=== PATIENT | female | born 2000 | race Hispanic/Latino ===

== ENCOUNTER 2022-10-14 22:01 | Emergency (ER) | payer OTHER ==
--- OUTSIDE RECORDS SUMMARY | 2022-10-14 22:04 | XMS REPORT | Continuity of Care Document ---
:2000 Author Organization [facility] t Address [address] [place] [id number] Care Team Providers Name Role Phone Unavailable Unavailable Unavailable Problems This patient has no known problems. Allergies, Adverse Reactions, Alerts This patient has no known allergies or adverse reactions. Medications This patient has no known medications. Procedures This patient has no known procedures. Encounters Start End Encounter Admission Attending Care Care Encounter Source Date/Time Date/Time Type Type Clinicians Facility Department ID 2022-06-14 2022-06-14 Outpatient SWATHI ECHEVARRIA [id number] Ker[place] 09:12:31 09:12:31 [id number] Tram Portillo Results This patient has no known results.
[2022-10-14 23:09] LABS: Specific Gravity 1.013 (1.005-1.030); Specific Gravity 1.023 (1.005-1.030); Urine Bilirubin NEGATIVE (Negative); Urine Blood Negative (Negative); Urine Clarity Extremely Turbid (Clear); Urine Color Light-Yellow (Yellow); Urine Glucose NEGATIVE (Negative); Urine Mucus Slight /HPF (None Seen); Urine Protein NEGATIVE (Negative); Urine RBC <5 /HPF (None Seen); Urine Urobilinogen Normal (Normal); Urine pH 5.5 (5.0-7.0)
[2022-10-14 23:12] LABS: Barbiturates NEGATIVE (NEGATIVE); Benzodiazepines NEGATIVE (NEGATIVE); Cocaine NEGATIVE (NEGATIVE); METHAMPHETAM NEGATIVE (NEGATIVE); Methadone NEGATIVE (NEGATIVE); Opiates NEGATIVE (NEGATIVE); Phencyclidine NEGATIVE (NEGATIVE); THC Cannibis NEGATIVE (NEGATIVE)
[2022-10-14 23:23] LABS: Urine Bacteria Loaded /HPF (<20)
[2022-10-15] MEDS ORDERED: DICYCLOMINE HCL 10 MG CAP ONE (00:34)
--- NOTE | 2022-10-15 00:44 | EDPHYS ---
Physician Documentation [facility] Name: Thao Vega Age: 22 yrs Sex: Female : 2000 Arrival Date: 10/14/2022 Time: 22:01 Bed 14 Private MD: ED Physician Sudhir Nichols HPI: 10/14 22:34 This 22 yrs old Female presents to ER via Ambulatory with complaints of snw Abdominal Cramping. 22:34 The patient presents with. snw 22:34 Onset: The symptoms/episode began/occurred 3 week(s) ago. Associated signs and snw symptoms: Pertinent positives: cramping. Severity of symptoms: At their worst the symptoms were mild, moderate. It is unknown whether or not the patient has had similar symptoms in the past. It is unknown whether or not the patient has recently seen a physician. 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 - Social history:: Smoking status: Patient denies any tobacco usage or history of. ROS: 22:33 Constitutional: Negative for fever, chills, and weight loss, Eyes: Negative for injury, snw pain, redness, and discharge, ENT: Negative for injury, pain, and discharge, Neck: Negative for injury, pain, and swelling, Cardiovascular: Negative for chest pain, palpitations, and edema, Respiratory: Negative for shortness of breath, cough, wheezing, and pleuritic chest pain, Back: Negative for injury and pain, : Negative for injury, bleeding, discharge, and swelling, MS/Extremity: Negative for injury and deformity, Skin: Negative for injury, rash, and discoloration, Neuro: Negative for headache, weakness, numbness, tingling, and seizure, Psych: Negative for depression, anxiety, suicide ideation, homicidal ideation, and hallucinations. 22:33 Abdomen/GI: Positive for abdominal cramps, LMP three weeks ago. Exam: 22:32 Constitutional: This is a well developed, well nourished patient who is awake, alert, snw and in no acute distress. Head/Face: Normocephalic, atraumatic. Eyes: Pupils equal round and reactive to light, extra-ocular motions intact. Lids and lashes normal. Conjunctiva and sclera are non-icteric and not injected. Cornea within normal limits. Periorbital areas with no swelling, redness, or edema. ENT: Nares patent. No nasal discharge, no septal abnormalities noted. Tympanic membranes are normal and external auditory canals are clear. Oropharynx with no redness, swelling, or masses, exudates, or evidence of obstruction, uvula midline. Mucous membranes moist. Neck: Trachea midline, no thyromegaly or masses palpated, and no cervical lymphadenopathy. Supple, full range of motion without nuchal rigidity, or vertebral point tenderness. No Meningismus. Chest/axilla: Normal chest wall appearance and motion. Nontender with no deformity. No lesions are appreciated. Cardiovascular: Regular rate and rhythm with a normal S1 and S2. No gallops, murmurs, or rubs. Normal PMI, no JVD. No pulse deficits. Respiratory: Lungs have equal breath sounds bilaterally, clear to auscultation and percussion. No rales, rhonchi or wheezes noted. No increased work of breathing, no retractions or nasal flaring. Back: No spinal tenderness. No costovertebral tenderness. Full range of motion. Skin: Warm, dry with normal turgor. Normal color with no rashes, no lesions, and no evidence of cellulitis. MS/ Extremity: Pulses equal, no cyanosis. Neurovascular intact. Full, normal range of motion. Neuro: Awake and alert, GCS 15, oriented to person, place, time, and situation. Cranial nerves II-XII grossly intact. Motor strength 5/5 in all extremities. Sensory grossly intact. Cerebellar exam normal. Normal gait. Psych: Awake, alert, with orientation to person, place and time. Behavior, mood, and affect are within normal limits. 22:32 Abdomen/GI: Inspection: abdomen appears normal, obese Bowel sounds: normal, Palpation: mild abdominal tenderness, in the suprapubic area. Vital Signs: 22:13 BP 138 / 79; Pulse 112; Resp 18 S; Temp 98.6(O); Pulse Ox 99% on R/A; Weight 99.79 kg as6 (R); Height 5 ft. 2 in. (R); Pain 5/10; 23:25 BP 137 / 80; Pulse 93; Resp 17; Temp 98.1(O); Pulse Ox 100% on R/A; ll3 10/15 01:02 BP 129 / 90; Pulse 90; Resp 16; Pulse Ox 100% on R/A; ll3 10/14 22:13 Body Mass Index 40.24 (99.79 kg, 157.48 cm) as6 10/14 22:13 Pain Scale: Adult as6 MDM: 10/14 22:18 Patient medically screened. snw 10/15 00:34 Differential diagnosis: dysmenorrhea, endometriosis, nonspecific abdominal pain. Data snw reviewed: vital signs, nurses notes. Counseling: I had a detailed discussion with the patient and/or guardian regarding: the historical points, exam findings, and any diagnostic results supporting the discharge/admit diagnosis, the presence of at least one elevated blood pressure reading (>120/80) during this emergency department visit, lab results, the need for outpatient follow up, for definitive care, to return to the emergency department if symptoms worsen or persist or if there are any questions or concerns that arise at home. Special discussion: Based on the patient's Hx, exam, and Dx evaluation, there is no indication for emergent surgery or inpatient Tx. It is understood by the patient/guardian that if the Sx's persist or worsen they need to return immediately for re-evaluation. Based on the history and exam findings, there is no indication for further emergent testing or inpatient evaluation. I discussed with the patient/guardian the need to see the primary care provider for further evaluation of the symptoms. 10/14 22:17 Order name: Test, Urine; Complete Time: 23:19 snw 10/14 22:17 Order name: Urinalysis w/ reflexes; Complete Time: 23:33 snw 10/14 22:17 Order name: Urine Drug Screen; Complete Time: 23:16 snw 10/14 23:26 Order name: Urine Culture ED[facility] 10/14 23:19 Order name: VS Recheck; Complete Time: 23:26 snw Administered Medications: 00:29 Drug: Dicyclomine PO 20 mg Route: PO; ll3 01:01 Follow up: Response: No adverse reaction; Marked relief of symptoms ll3 Disposition: 03:09 Co-signature as Attending Physician, Sudhir Nichols MD I agree with the assessment sp4 and plan of care. I reviewed the patient's care provided by the Advanced Practice Provider and agree with the diagnosis and treatment plan. Disposition Summary: 10/15/22 00:43 Discharge Ordered Location: Home snw Condition: Stable snw Diagnosis - Lower abdominal pain, unspecified snw Followup: snw - With: Emergency Department - When: As needed - Reason: Worsening of condition Followup: snw - With: Private Physician - When: 2 - 3 days - Reason: Recheck today's complaints, Continuance of care, Re-evaluation by your physician Discharge Instructions: - Discharge Summary Sheet snw - Abdominal Pain, Adult snw - [place] Diet snw Forms: - Work release form snw - Medication Reconciliation Form snw - Thank You Letter snw - Antibiotic Education snw - Prescription Opioid Use snw - [email or web address] snw Prescriptions: - promethazine 25 mg Oral Tablet - take 1 tablet by ORAL route every 6 hours As needed; 20 tablet; Refills: 0, snw Product Selection Permitted - dicyclomine 20 mg Oral Tablet - take 1 tablet by ORAL route 3 times per day; 21 tablet; Refills: 0, Product snw Selection Permitted Signatures: Dispatcher [employer] Dayami Garcia FNP-C STUDENT SERVICES COUNSELOR-Ninow Nayan Romero RN RN as6 Miguel Villavicencio RN RN ll3 Sudhir Nichols MD MD sp4
--- NOTE | 2022-10-15 00:44 | ER ---
Nurse's Notes [facility] Name: Thao Vega Age: 22 yrs Sex: Female : 2000 Arrival Date: 10/14/2022 Time: 22:01 Bed 14 Private MD: Diagnosis: Lower abdominal pain, unspecified Presentation: 10/14 22:13 Chief complaint: Patient states: lower abdominal pain/cramping x3 weeks. Coronavirus as6 screen: At this time, the client does not indicate any symptoms associated with coronavirus-19. Ebola Screen: No symptoms or risks identified at this time. Initial Sepsis Screen: Does the patient meet any 2 criteria? No. Patient's initial sepsis screen is negative. Does the patient have a suspected source of infection? No. Patient's initial sepsis screen is negative. Risk Assessment: Do you want to hurt yourself or someone else? Patient reports no desire to harm self or others. Onset of symptoms was September 2022. 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 - Social history:: Smoking status: Patient denies any tobacco usage or history of. Screenin:03 [facility] ED Fall Risk Assessment (Adult) History of falling in the last 3 months, ll3 including since admission No falls in past 3 months (0 pts) Confusion or Disorientation No (0 pts) Intoxicated or Sedated No (0 pts) Impaired Gait No (0 pts) Mobility Assist Device Used No (0 pt) Altered Elimination No (0 pt) Score/Fall Risk Level 0 - 2 = Low Risk Oriented to surroundings, Maintained a safe environment, Educated pt \T\ family on fall prevention, incl call for assistance when getting out of bed. Abuse screen: Denies threats or abuse. Denies injuries from another. Nutritional screening: No deficits noted. Tuberculosis screening: No symptoms or risk factors identified. Assessment: 23:03 General: Appears uncomfortable, Behavior is calm, cooperative. Pain: Complains of pain ll3 in suprapubic area Pain does not radiate. Pain currently is 5 out of 10 on a pain scale. Quality of pain is described as crampy, Pain began 3 weeks ago Is continuous. GI: Bowel sounds present X 4 quads. Abd is soft and non tender X 4 quads. Reports lower abdominal pain. Derm: Skin is pink, warm \T\ dry. Vital Signs: 22:13 BP 138 / 79; Pulse 112; Resp 18 S; Temp 98.6(O); Pulse Ox 99% on R/A; Weight 99.79 kg as6 (R); Height 5 ft. 2 in. (R); Pain 5/10; 23:25 BP 137 / 80; Pulse 93; Resp 17; Temp 98.1(O); Pulse Ox 100% on R/A; ll3 10/15 01:02 BP 129 / 90; Pulse 90; Resp 16; Pulse Ox 100% on R/A; ll3 10/14 22:13 Body Mass Index 40.24 (99.79 kg, 157.48 cm) as6 10/14 22:13 Pain Scale: Adult as6 ED Course: 10/14 22:09 Patient arrived in ED. kj1 22:12 Day[facility] Ceballos [facility]C [facility] snw 22:12 Sudhir Nichols MD is Attending Physician. snw 22:16 Triage completed. as6 22:17 Arm band placed on. as6 23:03 Patient has correct armband on for positive identification. Bed in low position. Call ll3 light in reach. Side rails up X 1. Adult w/ patient. 10/15 01:02 No provider procedures requiring assistance completed. Patient did not have IV access ll3 during this emergency room visit. Administered Medications: 00:29 Drug: Dicyclomine PO 20 mg Route: PO; ll3 01:01 Follow up: Response: No adverse reaction; Marked relief of symptoms ll3 Medication: 01:02 VIS not applicable for this client. ll3 Outcome: 00:43 Discharge ordered by . snw 01:02 Discharged to home ambulatory, with family. ll3 01:02 Condition: stable 01:02 Discharge instructions given to patient, family, Instructed on discharge instructions, follow up and referral plans. medication usage, Demonstrated understanding of instructions, follow-up care, medications, Prescriptions given X 2. 01:08 Patient left the ED. ll3 Signatures: Dayami Ceballos FNP-C DAY PORTER-Nicole Franz kj1 Nayan Romero RN RN as6 Miguel Villavicencio RN RN ll3 Corrections: (The following items were deleted from the chart) 10/14 23:36 23:25 BP 137 / 80; Pulse 98bpm; Resp 17bpm; Pulse Ox 100% RA; Temp 98.1F Oral; ll3 ll3
== END 2022-10-15 01:08 | disposition home or self-care (01) ==
LOC: ER 22:01
DX: R10.30 Lower abdominal pain, unspecified (principal)
CPT/HCPCS: 80307; 81001; 81025; 87077; 87086; 87088; 87186; 99283